=== PATIENT | female | born 2000 | race Two or more races ===

== ENCOUNTER 2023-04-26 11:09 | Emergency (ER) | payer MEDICAID, SELFPAY ==
[2023-04-26 11:15] VITALS: BP 103/65; BP 98/62; PULSE 70; PULSE 88; RESP 18; TEMP 36.7; O2SAT 99; BMI 18.6
[2023-04-26 11:21] VITALS: BP 103/65; PULSE 70; RESP 16; TEMP 36.7; O2SAT 98
--- NOTE | 2023-04-26 11:33 | ED_ITS ---
HPI - General Adult General Chief complaint: General Medical Stated complaint: nausea, diarrhea, abdominal pain Time Seen by Provider: 04/26/23 11:33 Source: patient and EMS Mode of arrival: EMS Limitations: no limitations History of Present Illness HPI narrative: 22 year old female with no significant past medical history presents today via EMS following a panic attack with nausea and vomiting. Patient reports increased anxiety for the last 24 hours with nausea and vomiting since yesterday morning. She reports having a panic attack this morning regarding recent changes to her job, prompting her to call EMS today. Upon EMS arrival, patient was hyperventilating and was transferred to our facility. Denies chest pain, shortness of breath, diaphoresis., diarrhea, constipation, hematemesis, or melena. Denies chance of . Onset (ago): day(s) Radiation: non-radiation Severity: mild and moderate Pain Consistency: constant Relieving factors: none Exacerbating factors: none Associated symptoms: nausea/vomiting Related Data Previous Rx's Medication Instructions Recorded hydroxyzine HCl 10 mg tablet 10 mg PO Q8H PRN anxiety #10 tabs 04/26/23 omeprazole magnesium 20 mg 20 mg PO DAILY #14 tabs 04/26/23 tablet,delayed release (Prilosec OTC) ondansetron 4 mg disintegrating 4 mg PO Q8H PRN nausea and 04/26/23 tablet vomiting 3 days #18 tabs Allergies Allergy/AdvReac Type Severity Reaction Status Date / Time Unable to Assess Allergy Unverified 04/26/23 11:42 Review of Systems Review of Systems: Yes all other systems are reviewed and are negative [facility] Past Medical History Attestation statement: The following information was validated with the patient. Social History Social History Advance Directives: No Advance Directives Information Provided: Yes Physical Exam ED Vital Signs: Vital Signs - 24 hr 04/26/23 11:15 04/26/23 11:21 04/26/23 14:49 Temperature 98.1 F 98.1 F 98.1 F Pulse Rate 70 70 73 Respiratory Rate 18 16 16 Blood Pressure 103/65 103/65 115/80 Pulse Oximetry 99 98 100 Oxygen Delivery Method Room Air Room Air Room Air BMI result Body Mass Index 18.6 Appearance: Alert. Oriented X3. No acute distress. Eyes: Pupils equal, round and reactive to light. Neck: Normal inspection. Neck supple. CVS: Normal heart rate and rhythm. Pulses normal. Respiratory: No respiratory distress. Breath sounds normal. Abdomen: Soft and nontender. +BS x4 Skin: Skin warm and dry. Normal skin color. Normal skin turgor. No rashes. Extremities: No lower extremity edema. No joint swelling. Neuro/psych: Oriented X 3. Normal speech and cognition. Medications Administered Discontinued Medications Generic Name Dose Route Start Last Admin Trade Name Freq PRN Reason Stop Dose Admin Al Hydroxide/Mg Hydroxide 30 ml 04/26/23 12:45 04/26/23 13:59 Magnesium Hydrox/Alum Hydrox 30 Ml Oral.Susp PO 04/26/23 12:46 30 ml ONCE ONE Administration Famotidine 20 mg 04/26/23 12:45 04/26/23 13:59 Famotidine 20 Mg Tablet PO 04/26/23 12:46 20 mg ONCE ONE Administration Sodium Chloride 1,000 mls @ 999 mls/hr 04/26/23 11:45 04/26/23 13:05 Ns IVCONT 04/26/23 12:45 Infused .Q1H1M AKOSUA Infusion Lidocaine HCl 15 ml 04/26/23 12:45 04/26/23 13:59 Lidocaine Hcl Viscous 2 % 15 Ml Solution MUCOUS MEM 04/26/23 12:46 Not Given ONCE ONE Lorazepam 1 mg 04/26/23 11:42 04/26/23 12:01 Lorazepam 2 Mg/Ml Vial IVPUSH 04/26/23 11:43 1 mg STAT STA Administration Ondansetron HCl 4 mg 04/26/23 11:42 04/26/23 12:01 Ondansetron Hcl 4 Mg/2 Ml Vial IVPUSH 04/26/23 11:43 4 mg ONCE ONE Administration Potassium Chloride 40 meq 04/26/23 12:46 04/26/23 14:01 Potassium Chloride Er 20 Meq Tab.Er.Prt PO 04/26/23 12:47 Not Given ONCE ONE Medical Decision Making Medical Decision Making MDM Narrative: 22 year old female with no significant past medical history 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 Vital signs are stable. Physical exam unremarkable. Plan: labs, IVF, antiemetic, GI cocktail, anxiolytics Patients lab workup remarkable for potassium of 3.2, otherwise unremarkable. She is feeling better after administration of IVF, zofran, GI cocktail and ativan. Clinical presentation consistent with with anxiety and possible gastritis. Patient is stable for discharge and will be sent home with script for zofran, prilosec, and hydroxyzine [facility] PCP follow up. Differential Diagnosis Differential Diagnoses: The differential diagnosis associated with the presentation includes (anxiety, gastritis, panic attack, electrolyte abnormali ties, GERD, doubt PE, arrhythmia) Lab Data MDM Lab Attestation statement: I reviewed the patient's lab results. CBC unremarkable. Low potassium 04/26/23 11:55 04/26/23 11:55 Labs: Lab Results 04/26/23 04/26/23 Range/Units 11:55 11:55 WBC 10.9 H (4.8-10.8) X10*3/uL RBC 5.36 (4.20-5.50) X10*6/uL Hgb 13.6 (12.0-16.0) g/dl Hct 41.3 (37.0-47.0) % MCV 77.1 L (80.0-98.0) fL MCH 25.4 L (27.0-33.0) pg MCHC 32.9 (31.0-35.0) g/dl RDW 14.1 (11.0-16.0) % Plt Count 257 (160-400) X10*3/uL MPV 10.1 (9.4-12.3) fL Immature Gran % (Auto) 0.4 (0.0-0.4) % Neut % (Auto) 87.8 H (45-73) % Lymph % (Auto) 5.8 L (20-40) % [place] % (Auto) 5.8 (2-11) % Eos % (Auto) 0.0 (0-4) % Baso % (Auto) 0.2 (0-2) % Lymph # (Auto) 0.6 L (1.2-4.9) X10*3/uL [place] # (Auto) 0.6 (0.1-1.2) X10*3/uL Eos # (Auto) 0.0 (0.0-0.4) X10*3/uL Baso # (Auto) 0.0 (0.0-0.2) X10*3/uL Abs Immat Gran (auto) 0.04 H (0.00-0.03) X10*3/uL Absolute Neuts (auto) 9.5 H (2.0-8.3) x10*3/uL Absolute Nucleated RBC 0.000 (0.0-0.012) X10*3/uL Nucleated RBC % (auto) 0.0 (0.0-0.2) /100WBC Sodium 142 (135-145) mmol/L Potassium 3.2 L (3.3-5.1) mmol/L Chloride 106 (96-108) mmol/L Carbon Dioxide 24 (22-29) mmol/L Anion Gap 15 (12-20) BUN 13 (9-16) mg/dL Creatinine 0.66 (0.5-1.4) mg/dL Estim Creat Clear Calc 101.3 Estimated GFR > 60 Random Glucose 112 (60-115) mg/dL Calcium 10.4 H (8.4-10.2) mg/dL Magnesium 2.1 (1.6-2.6) mg/dL Total Bilirubin 0.7 (0.0-1.0) mg/dL Direct Bilirubin 0.2 (0.0-0.5) mg/dL AST 17 (5-31) U/L ALT 10 (0-31) U/L Alkaline Phosphatase 51 (39-117) U/L Total Protein 8.4 H (6.5-8.0) g/dL Albumin 4.8 (3.5-5.0) g/dL Lipase 37 (8-78) U/L Independent Historian Clinical information obtained from an independent historian. History obtained from or confirmed by: EMS External Record Review External record reviewed: Inpatient record, Office record, Outpatient record and Prior outpatient labs Prescription Management I considered prescription management with: Other (antiemetics, anxiolytics) Critical Care Time Critical Care Time Critical Care Time: No Discharge Plan Discharge Clinical Impression: Gastritis, Anxiety Patient Disposition: Home, Self-Care Instructions: Gastritis (DC), Anxiety (ED) Additional Instructions: Your lab workup today was unremarkable. Your pain is most likely due to gastritis which is and irritation and inflammation of your stomach lining. Start taking the prescribed medication as directed for this. Stick to a bland diet. Avoid foods high in acid, avoid alcohol and NSAID medications like Aleve, Motrin, Advil or ibuprofen. Follow up with your doctor as needed. Follow up with GI doctor if you symptoms persist despite dietary modifications and medication. If you develop new or worsening symptoms call 911 or come back to the ER for further evaluation. Prescriptions for zofran, prilosec, and hydroxyzine have been sent to your [facility]. Please take these as needed for nausea and vomiting. Prescriptions: New ondansetron 4 mg tablet,disintegrating 4 mg PO Q8H PRN (Reason: nausea and vomiting) 3 Days Qty: 18 0RF omeprazole magnesium [Prilosec OTC] 20 mg tablet,delayed release (DR/EC) 20 mg PO DAILY Qty: 14 0RF hydroxyzine HCl 10 mg tablet 10 mg PO Q8H PRN (Reason: anxiety) Qty: 10 0RF Referrals: Physician,Unknown J [Primary Care Provider] - 1 week Interventions: ED Discharge Assessment Last Done: 04/26/23 15:52
[2023-04-26] MEDS: ondansetron HCL 4 MG/2 ML VIAL IVPUSH (12:01)
[2023-04-26] MEDS: LORazepam 2 MG/ML VIAL 1 MG IVPUSH (12:01)
[2023-04-26 12:02] LABS: MANUAL DIFF FLAG NO
[2023-04-26] MEDS: 0.9 % Sodium Chloride 1,000 ML 999 ML IVCONT (12:02)
[2023-04-26 12:08] LABS: Basophils Percent Auto 0.2 % (0-2); Hematocrit 41.3 % (37.0-47.0); Hemoglobin 13.6 g/dl (12.0-16.0); Imm Gran Abs Auto 0.04 X10*3/uL (0.00-0.03); Imm Gran Pct Auto 0.4 % (0.0-0.4); Lymphocytes Absolute Auto 0.6 X10*3/uL (1.2-4.9); Lymphocytes Percent Auto 5.8 % (20-40); Mean Corpuscular HGB Conc 32.9 g/dl (31.0-35.0); Mean Corpuscular Hemoglobin 25.4 pg (27.0-33.0); Mean Corpuscular Volume 77.1 fL (80.0-98.0); Mean Platelet Volume 10.1 fL (9.4-12.3); Monocytes Absolute Auto 0.6 X10*3/uL (0.1-1.2); Monocytes Percent Auto 5.8 % (2-11); Neutrophils Absolute Auto 9.5 x10*3/uL (2.0-8.3); Neutrophils Percent Auto 87.8 % (45-73); Platelet Count 257 X10*3/uL (160-400); Red Blood Count 5.36 X10*6/uL (4.20-5.50); Red Cell Distribution Width 14.1 % (11.0-16.0); White Blood Count 10.9 X10*3/uL (4.8-10.8)
--- NOTE | 2023-04-26 12:21 | PC.NURSE ---
pt refusing to provide urine sample
[2023-04-26 12:24] LABS: Alanine Aminotransferase 10 U/L (0-31); Albumin Level 4.8 g/dL (3.5-5.0); Alkaline Phosphatase 51 U/L (39-117); Anion Gap 15 (12-20); Aspartate Amino Transferase 17 U/L (5-31); Bilirubin Direct 0.2 mg/dL (0.0-0.5); Bilirubin Total 0.7 mg/dL (0.0-1.0); Blood Urea Nitrogen 13 mg/dL (9-16); Calcium 10.4 mg/dL (8.4-10.2); Carbon Dioxide 24 mmol/L (22-29); Chloride 106 mmol/L (96-108); Creatinine Clr Calc Pharmacy 101.3; Estimated Glomerular Filt Rate > 60; Glucose Random 112 mg/dL (60-115); Lipase 37 U/L (8-78); Magnesium 2.1 mg/dL (1.6-2.6); Potassium 3.2 mmol/L (3.3-5.1); Sodium 142 mmol/L (135-145); Total Protein 8.4 g/dL (6.5-8.0)
[2023-04-26] MEDS: Famotidine 20 MG TABLET PO (13:59)
[2023-04-26] MEDS: Magnesium Hydrox/Alum Hydrox 30 ML ORAL.SUSP PO (13:59)
[2023-04-26 14:49] VITALS: BP 115/80; PULSE 73; RESP 16; TEMP 36.7; O2SAT 100
[2023-04-26 16:09] VITALS: BP 99/69; PULSE 68; RESP 17; O2SAT 98
== END 2023-04-26 16:32 | disposition home or self-care (01) ==
PROVIDERS: Physician Assistant; Emergency Provider Emergency Medicine Emergency Medical Services
DX: K29.70 Gastritis, unspecified, without bleeding (principal); F41.9 Anxiety disorder, unspecified; R11.2 Nausea with vomiting, unspecified; F12.90 Cannabis use, unspecified, uncomplicated
CPT/HCPCS: 36415; 80048; 80076; 83690; 83735; 85025; 96361; 96374; 96375; 99284; J2060; J2405

== ENCOUNTER 2023-04-27 07:54 | Emergency (ER) | payer MEDICAID, SELFPAY ==
[2023-04-27 08:11] VITALS: BP 116/56; PULSE 57; RESP 18; TEMP 36.9; O2SAT 100; BMI 18.6
--- NOTE | 2023-04-27 08:26 | ED.NAVMDI ---
HPI - Nausea/Vomiting/Diarrhea General Chief complaint: Nausea/Vomiting/Diarrhea Stated complaint: dizzy Time Seen by Provider: 04/27/23 08:19 Source: patient Mode of arrival: ambulatory Limitations: no limitations History of Present Illness HPI Narrative: 22-year-old female who presents emergency department for evaluation of nausea, vomiting abdominal pain. Patient states that she has been sick for approximately 4 days. She points to her epigastric area when asked to localize the pain, she describes this as a constant, burning pain. She states she has not been able to eat or drink. She states she has been vomiting multiple times. She states she is very anxious. Patient was seen in the emergency department yesterday with similar complaints. She was diagnosed with gastritis and anxiety-patient was hyperventilating yesterday on presentation. Patient's laboratory evaluation was unremarkable. She was treated with IV fluid, Zofran, GI cocktail on Ativan. 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 Related Data Previous Rx's Medication Instructions Recorded hydroxyzine pamoate 25 mg capsule 25 mg PO TID PRN nausea and 04/27/23 vomiting #20 caps omeprazole 20 mg capsule,delayed 20 mg PO DAILY 30 days #30 caps 04/27/23 release ondansetron 4 mg disintegrating 4 mg PO Q6-8H PRN nausea and 04/27/23 tablet vomiting #14 tabs Allergies Allergy/AdvReac Type Severity Reaction Status Date / Time No Known Allergies Allergy Verified 04/27/23 08:10 Review of Systems Review of Systems: Yes all other systems are reviewed and are negative [facility] Past Medical History [facility] Narrative: Past medical history: None. Past surgical history: None. Social history: She denies tobacco, alcohol and drug use. She states that she has not smoked marijuana in over 9 months. Social History Social History Use of substances other than those prescribed or required for medical reasons: Yes Substance Use Type: Marijuana Advance Directives: No Advance Directives Information Provided: Yes Physical Exam Vital Signs: Vital Signs: Last Vital Signs Temp 98.5 F 04/27/23 11:38 Pulse 71 04/27/23 11:38 Resp 16 04/27/23 11:38 BP 125/80 04/27/23 11:38 Pulse Ox 100 04/27/23 11:38 O2 Del Method Room Air 04/27/23 11:38 BMI result Body Mass Index 18.6 Const: Other: Awake, alert, female patient, she is actively vomiting, does answer questions appropriately HEENT: Head: Yes normal to inspection, Yes normocephalic and Yes atraumatic Ears: external ears normal General nose exam: Normal external nose present Face and sinus: Yes normal facial exam Mouth: Normal oral and palatal mucosa present Throat: Yes posterior oropharynx normal Eyes: General: appearance normal, both eyes and all related structures Neck: Neck: Yes normal visual inspection, Yes no lymphadenopathy, Yes trachea midline and Yes supple Chest: Chest palpation & inspection: normal inspection of the chest and normal palpation of entire chest wall Resp: Effort & Inspection: normal respiratory effort and able to speak in complete sentences Auscultation: clear to auscultation bilaterally Cardio: Rate: regular rate Rhythm: regular rhythm Heart sounds: S1 normal heart sound present, S2 normal heart sound present and no murmurs GI: Inspection: Yes normal to inspection Palpation (GI): Soft to palpation, Tenderness to palpation present (GI) in the epigastrum (Moderate) and no guarding Auscultation: normal bowel sounds : General: Yes no CVA tenderness Back/Spine/Pelvis: Back: no CVA tenderness Skin: General skin exam: no rashes or lesions noted Neuro: Cognition (Neuro): normal cognition Motor exam (neuro): 5/5 motor strength present throughout Extrem: General: Yes normal to inspection Psych: Appearance: grossly normal Speech and movement: Normal speech and movement present Affect: normal affect Attitude: cooperative Medications Administered Discontinued Medications Generic Name Dose Route Start Last Admin Trade Name Freq PRN Reason Stop Dose Admin Diphenhydramine HCl 50 mg 04/27/23 10:50 04/27/23 10:57 Diphenhydramine Hcl 50 Mg/Ml Vial IVPUSH 04/27/23 10:51 50 mg ONCE STA Administration Sodium Chloride 1,000 mls @ 999 mls/hr 04/27/23 08:27 04/27/23 09:43 Ns IV 04/27/23 09:27 Infused .Q1H1M STA Infusion Ketorolac Tromethamine 15 mg 04/27/23 08:27 04/27/23 08:34 Ketorolac Tromethamine 15 Mg/Ml Vial IVPUSH 04/27/23 08:28 15 mg ONCE STA Administration Lorazepam 1 mg 04/27/23 10:50 04/27/23 10:54 Lorazepam 2 Mg/Ml Vial IVPUSH 04/27/23 10:51 1 mg STAT STA Administration Metoclopramide HCl 10 mg 04/27/23 10:50 04/27/23 10:57 Metoclopramide Hcl 10 Mg/2 Ml Vial IVPUSH 04/27/23 10:51 10 mg ONCE STA Administration Ondansetron HCl 4 mg 04/27/23 08:27 04/27/23 08:34 Ondansetron Hcl 4 Mg/2 Ml Vial IVPUSH 04/27/23 08:28 4 mg ONCE ONE Administration Medical Decision Making Medical Decision Making [facility] Narrative: 22-year-old female who presents emergency department for evaluation of nausea, vomiting, epigastric pain. Patient states she has been sick for 4 days. She was seen yesterday in the emergency department and at that time she was having anxiety/panic attack with hyperventilation. She was treated with Ativan, Zofran and IV fluids. Her laboratory evaluation was unremarkable pain. She was discharged home with prescription medicines but was unable to get these medications filled since her [facility] . Vital signs were unremarkable. The patient was actively vomiting at the time of my interview. She did have epigastric tenderness but did not appear to be having anxiety or panic attack. I ordered the following tests: CBC, CMP, lipase and quantitative beta-hCG. Patient will be treated with Toradol 15 mg IV, Zofran 4 mg IV and normal saline x1 L IV. 1051: Patient's laboratory evaluation was unremarkable, quantitative beta-hCG was negative Patient, minimal relief of her symptoms with the above treatment, she now appears to be having anxiety attack with persistent nausea and pseudo-seizure. Patient was ordered to get Ativan 1 mg IV, Reglan 10 mg IV and Benadryl 50 mg IV 1439: Patient is feeling better. I did discuss anxiety/panic attack with the patient. 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 [facility] and [facility] did not accept her insurance pain Patient was prescribe Zofran 4 mg every 8 hours as needed for nausea and vomiting, members all 20 mg once a day for 1 month and hydroxyzine 10 mg every 8 hours as needed for anxiety Differential Diagnosis Differential Diagnoses: The differential diagnosis associated with the presentation includes Differential diagnosis includes was not limited to anxiety/panic attack, viral syndrome, gastritis, pancreatitis, electrolyte abnormality, Admission/Observation Consideration of admission/observation: Escalation of care including admission/observation considered Lab Data MDM Lab Attestation statement: I reviewed the patient's lab results. My interpretation patient's laboratory evaluation is as follows: CBC was normal. CMP revealed a low bicarb 21. Lipase was negative. Beta hCG was negative. This is a reassuring negative workup. Labs are unchanged from her 04/26/2023 evaluation. 04/27/23 08:30 04/27/23 09:26 Labs: Lab Results 04/27/23 04/27/23 04/27/23 Range/Units 08: 09:26 09:26 WBC 9.0 (4.8-10.8) X10*3/uL RBC 5.15 (4.20-5.50) X10*6/uL Hgb 13.0 (12.0-16.0) g/dl Hct 40.4 (37.0-47.0) % MCV 78.4 L (80.0-98.0) fL MCH 25.2 L (27.0-33.0) pg MCHC 32.2 (31.0-35.0) g/dl RDW 14.2 (11.0-16.0) % Plt Count 242 (160-400) X10*3/uL MPV 10.6 (9.4-12.3) fL Immature Gran % (Auto) 0.4 (0.0-0.4) % Neut % (Auto) 81.6 H (45-73) % Lymph % (Auto) 12.2 L (20-40) % [place] % (Auto) 5.6 (2-11) % Eos % (Auto) 0.0 (0-4) % Baso % (Auto) 0.2 (0-2) % Lymph # (Auto) 1.1 L (1.2-4.9) X10*3/uL [place] # (Auto) 0.5 (0.1-1.2) X10*3/uL Eos # (Auto) 0.0 (0.0-0.4) X10*3/uL Baso # (Auto) 0.0 (0.0-0.2) X10*3/uL Abs Immat Gran (auto) 0.04 H (0.00-0.03) X10*3/uL Absolute Neuts (auto) 7.4 (2.0-8.3) x10*3/uL Absolute Nucleated RBC 0.000 (0.0-0.012) X10*3/uL Nucleated RBC % (auto) 0.0 (0.0-0.2) /100WBC Sodium 142 (135-145) mmol/L Potassium 3.3 (3.3-5.1) mmol/L Chloride 108 (96-108) mmol/L Carbon Dioxide 21 L (22-29) mmol/L Anion Gap 16 (12-20) BUN 15 (9-16) mg/dL Creatinine 0.67 (0.5-1.4) mg/dL Estim Creat Clear Calc 99.8 Estimated GFR > 60 Random Glucose 94 (60-115) mg/dL Calcium 8.8 D (8.4-10.2) mg/dL Total Bilirubin 0.7 (0.0-1.0) mg/dL AST 14 (5-31) U/L ALT 10 (0-31) U/L Alkaline Phosphatase 43 (39-117) U/L Total Protein 7.7 (6.5-8.0) g/dL Albumin 4.3 (3.5-5.0) g/dL Lipase 36 (8-78) U/L Beta HCG, Quant < 2 mIU/mL Discharge Plan Discharge Clinical Impression: Panic attack, Vomiting, Acute dehydration Gastritis Qualifiers: Chronicity: acute Gastritis bleeding: without bleeding Patient Disposition: Home, Self-Care Instructions: Gastritis (ED), Panic Attack (ED) Additional Instructions: Your blood work was unremarkable. Here in the emergency department, your hyperventilating, shaking, and were having a panic attack. Your abdominal pain is most likely caused by too much acid in your stomach (gastritis). Take Prilosec (omeprazole) 20 mg pills, 1 pill once a day for 1 month. This medication shuts off your acid production and lets the inflammation in your stomach and esophagus heal. Take Zofran ODT 4 mg pills, 1 pill dissolved in your mouth every 8 hours as needed for nausea and vomiting. Take hydroxyzine 10 mg pills, 1 pill every 8 hours as needed for anxiety. Follow-up with your doctor in 2 days. Please return to the emergency department if your symptoms get worse or if you develop any symptoms that are concerning to you. Prescriptions: New omeprazole 20 mg capsule,delayed release(DR/EC) 20 mg PO DAILY 30 Days Qty: 30 0RF ondansetron 4 mg tablet,disintegrating 4 mg PO Q6-8H PRN (Reason: nausea and vomiting) Qty: 14 0RF hydroxyzine pamoate 25 mg capsule 25 mg PO TID PRN (Reason: nausea and vomiting) Qty: 20 0RF Discontinued ondansetron 4 mg tablet,disintegrating 4 mg PO Q8H PRN (Reason: nausea and vomiting) 3 Days Qty: 18 0RF omeprazole magnesium [Prilosec OTC] 20 mg tablet,delayed release (DR/EC) 20 mg PO DAILY Qty: 14 0RF hydroxyzine HCl 10 mg tablet 10 mg PO Q8H PRN (Reason: anxiety) Qty: 10 0RF
[2023-04-27] MEDS: Ketorolac Tromethamine 15 MG/ML VIAL IVPUSH (08:34)
[2023-04-27] MEDS: ondansetron HCL 4 MG/2 ML VIAL IVPUSH (08:34)
[2023-04-27] MEDS: 0.9 % Sodium Chloride 1,000 ML 999 ML IV (08:35)
[2023-04-27 09:11] VITALS: BP 124/71; PULSE 55; RESP 16; TEMP 36.6; O2SAT 100
--- NOTE | 2023-04-27 11:03 | PC.NURSE ---
pt cont to have severe nausea and is vomiting. 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 MD aware and assessed pt. medicated per dec with ativan/reglan and benedryl will cont to del[facility] Gomez
--- NOTE | 2023-04-27 11:35 | MHC.EDTECH ---
Assisted patient on and off commode . Emptied commode and replaced liner. Dea Webb
[2023-04-27 11:38] VITALS: BP 125/80; PULSE 71; RESP 16; TEMP 36.9; O2SAT 100
--- NOTE | 2023-04-27 12:20 | PC.NURSE ---
pt sleeping, will be allowed to rest for now
[2023-04-27 14:55] VITALS: BP 103/64; PULSE 66; RESP 12; O2SAT 98
== END 2023-04-27 14:57 | disposition home or self-care (01) ==
PROVIDERS: Emergency Provider Emergency Medicine Emergency Medical Services
DX: K29.70 Gastritis, unspecified, without bleeding (principal); F41.0 Panic disorder [episodic paroxysmal anxiety]; E86.0 Dehydration; R11.2 Nausea with vomiting, unspecified
CPT/HCPCS: 36415; 80053; 83690; 84702; 85025; 96361; 96374; 96375; 99284; J1200; J1885; J2060; J2405; J2765

== ENCOUNTER 2024-02-28 09:03 | Emergency (ER) | payer MEDICAID, SELFPAY ==
--- NOTE | ~2024-02-28 | XR_ITS ---
EXAMINATION: XR HAND/WRIST, RIGHT CLINICAL INFORMATION: Fall. COMPARISON: None TECHNIQUE: PA, lateral, and oblique views of the right hand and wrist. FINDINGS: The bones and soft tissues are normal. No fracture. Alignment is anatomic. Joint spaces are maintained. No erosions or soft tissue calcifications. XR/XR hand wrist RT IMPRESSION: Normal radiographs of the hand and wrist.
[2024-02-28 09:28] VITALS: BP 101/41; PULSE 53; RESP 18; TEMP 36.6; O2SAT 98; BMI 21.3
--- NOTE | 2024-02-28 11:01 | ED_ITS ---
HPI - Extremity Problem General Chief complaint: Extremity Injury, Upper Stated complaint: r arm inj fell down stairs Time Seen by Provider: 02/28/24 11:01 Source: patient Mode of arrival: ambulatory Limitations: no limitations History of Present Illness HPI Narrative: Patient is a 23-year old right hand dominant female presenting to the emergency department with complaint of right hand pain and bruising since yesterday. States she tripped and fell onto outstretched hands at work at [employer]. Denies any weakness, numbness, tingling. Did not take any OTC medications prior to arrival. MD Complaint: extremity pain Onset (ago): day(s) Pain Consistency: constant Location: right Quality: aching Exacerbating factors: palpation Associated symptoms: denies other symptoms Related Data Previous Rx's ?Medication ?Instructions ?Recorded hydroxyzine pamoate 25 mg capsule 25 mg PO TID PRN nausea and 04/27/23 vomiting #20 caps omeprazole 20 mg capsule,delayed 20 mg PO DAILY 30 days #30 caps 04/27/23 release ondansetron 4 mg disintegrating 4 mg PO Q6-8H PRN nausea and 04/27/23 tablet vomiting #14 tabs ibuprofen 600 mg tablet 600 mg PO Q6H PRN pain #14 tabs 02/28/24 Allergies Allergy/AdvReac Type Severity Reaction Status Date / Time No Known Allergies Allergy Verified 02/28/24 09:29 Review of Systems Review of Systems: As per HPI. Yes all other systems are reviewed and are negative Constitutional: Constitutional: Reports as per HPI [facility] Social History Social History Substance Use Type: Marijuana Physical Exam Vital Signs: Vital Signs: Last Vital Signs Temp 98 F 02/28/24 09:28 Pulse 53 02/28/24 09:28 Resp 18 02/28/24 09:28 BP 101/41 L 02/28/24 09:28 Pulse Ox 98 02/28/24 09:28 O2 Del Method Room Air 02/28/24 09:28 BMI result Body Mass Index 21.3 Vital signs have been reviewed and appear to be correct. Blood pressure normal. Heart rate normal. Respiratory rate normal. Temperature normal. Oxygen saturation normal. Const: General: cooperative, healthy appearing and no acute distress Orientation/consciousness: oriented to person, oriented to place, oriented to time and patient oriented x3 Limitations: no limitations HEENT: Head: Yes normocephalic and Yes atraumatic Ears: external ears normal General nose exam: Normal external nose present Face and sinus: Yes face symmetric Mouth: oropharynx normal and moist mucous membranes Throat: Yes uvula midline Eyes: Pupils: Equal, round and reactive pupils present Neck: Neck: Yes normal visual inspection and Yes supple Resp: Effort & Inspection: normal respiratory effort and able to speak in complete sentences Auscultation: clear to auscultation bilaterally Cardio: Rate: regular rate Rhythm: regular rhythm Heart sounds: S1 normal heart sound present and S2 normal heart sound present GI: Palpation (GI): Soft to palpation and nontender Auscultation: normoactive bowel sounds : General: Yes no CVA tenderness Back/Spine/Pelvis: Back: no CVA tenderness Skin: General skin exam: elasticity normal and turgor normal Neuro: General: oriented to person, oriented to place, oriented to time, patient oriented x3, moves all extremities, no focal motor deficits and CN's II- XI intact bilaterally Cranial nerves: Yes Equal, round and reactive pupils present Cognition (Neuro): normal cognition Extrem: General: Yes normal to inspection, Yes full ROM, Yes capillary refill normal, Yes no pedal edema and Yes no calf tenderness Right upper extremity: Extremity exam: right hand Details: normal capillary refill, neuromotor exam normal, neurosensory exam normal, tenderness Location: of the dorsal hand Location: over the 5th metacarpal, vascular exam Details: radial pulse present, normal ROM of fingers and ecchymosis Location: of the dorsal hand Location: over the 5th metacarpal Psych: Mental Status: mental status grossly normal Affect: normal affect Thought process: Normal thought process present Medical Decision Making Medical Decision Making MDM Narrative: Patient is a 23-year old right hand dominant female presenting to the emergency department with complaint of right hand pain and bruising since yesterday. On exam patient is awake, A+Ox3, VS WNL, afebrile, normal neurological exam without focal deficits, physical exam findings as above. Given reported symptoms and physical exam findings, initial differential includes contusion versus sprain versus fracture. X-ray notable for no evidence. My interpretation is in agreement with the radiologist's interpretation. Patient provided with KAY wrap, advised to use ibuprofen and ice. Return precautions discussed. Patient verbalized understanding of and agreement with plan. Differential Diagnosis Differential Diagnoses: The differential diagnosis associated with the presentation includes contusion, fracture, sprain Independent Interpretation I performed an independent interpretation of an: Plain X-Ray Interpretation: No evidence of fracture right hand. Radiology Impression Discussion of test interpretation with radiology: I have reviewed the radiologist's reading. Radiologist Impression: XR/XR hand wrist RT IMPRESSION: Normal radiographs of the hand and wrist. External Record Review External record reviewed: Inpatient record, Office record and Outpatient record Prescription Management I considered prescription management with: Pain Medication Discharge Plan Discharge Clinical Impression: Contusion of hand, right Patient Disposition: Home, Self-Care Instructions: How to Use an Elastic Bandage (ED), Contusion in Adults (ED), R.I.C.E. Treatment (ED) Additional Instructions: You were evaluated in the emergency department today for right hand pain and bruising. Your x-ray did not show evidence of any fractures. You were provided with an KAY wrap today which you can use for comfort. We recommend that you elevated your hand at rest and apply ice for 10-15 minutes at a time. We recommend that you take 600mg ibuprofen every 6 hours as needed for pain. Return to the emergency department with any new or worsening symptoms. Prescriptions: New ibuprofen 600 mg tablet 600 mg PO Q6H PRN (Reason: pain) Qty: 14 0RF No Action omeprazole 20 mg capsule,delayed release(DR/EC) 20 mg PO DAILY 30 Days Qty: 30 0RF ondansetron 4 mg tablet,disintegrating 4 mg PO Q6-8H PRN (Reason: nausea and vomiting) Qty: 14 0RF hydroxyzine pamoate 25 mg capsule 25 mg PO TID PRN (Reason: nausea and vomiting) Qty: 20 0RF Stand Alone Forms: Work/School Release Discharge Date/Time: 02/28/24 11:16 Print Language: Choose Not To Answer
[2024-02-28 11:12] VITALS: BP 0/0; PULSE 80; RESP 18; TEMP 36.6; O2SAT 98
== END 2024-02-28 11:16 | disposition home or self-care (01) ==
PROVIDERS: Emergency Provider Emergency Medicine
DX: S60.221A Contusion of right hand, initial encounter (principal); W01.0XXA Fall on same level from slipping, tripping and stumbling without subsequent striking against object, initial encounter; Y93.9 Activity, unspecified; Y92.89 Other specified places as the place of occurrence of the external cause; Y99.0 Civilian activity done for income or pay
CPT/HCPCS: 73110; 73130; 99282; 99283